=== PATIENT | male | born 1940 | race Caucasian/White ===

== ENCOUNTER → 2017-07-12 11:14 | Outpatient (POV) | payer MEDICARE, OTHER, BC, SELFPAY ==
[2017-07-12 11:28] VITALS: BP 165/96; PULSE 91; RESP 18; O2SAT 97; BMI 25.7
--- NOTE | 2017-07-12 12:05 | HMH.PAINSOAP ---
[facility] Pain Management SOAP Note Subjective:: Patient is a pleasant 77-year-old male who we are following up with for pain secondary to degenerative disc disease of the lumbar spine, lumbar radiculopathy, postlaminectomy syndrome. Patient recently returned from [place] vacation. Patient states he thought that his injection appointment was today. I discussed with the patient the necessity to follow-up in between injections. Patient would like a lumbar epidural steroid injection at L4-L5. He has been getting these regularly with good relief. States that he gets up to 80% relief for several months after these injections. Patient is also been taking [place] 5 mg 1 p.o. 3 times daily. Denies side effects of this pain medication. Patient states that the pain medication relieves his pain up to 75%. Patient describes his pain is achy and constant. He states that he does have right radicular pain in his leg times. 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 Plan:: We will refill his [place] 5 mg 1 p.o. 3 times daily. I discussed with Dr. De Leon this and he agrees. [facility] #[id number] reviewed and appropriate. Will be sent for urine drug screen today. Patient did recently receive cough medicine with hydrocodone in it from his primary care provider. We will also order him a lumbar epidural steroid injection at L4-L5 today given its efficacy in the past. Patient has been prescribed a controlled substance after being counseled on the medication, medication safety, and possible side effects. [facility] report has been obtained and reviewed prior to prescription and found to be appropriate. Opioid contract was reviewed and signed by the patient, and that they have agreed to all of the terms set forth by our compliance program. This note was dictated using voice recognition software and may include errors and omissions.
--- NOTE | 2017-07-12 12:09 | P.CONS_ITS ---
[facility] Pain Management SOAP Note Subjective:: Patient is a pleasant 77-year-old male who we are following up with for pain secondary to degenerative disc disease of the lumbar spine, lumbar radiculopathy , postlaminectomy syndrome. Patient recently returned from [place] vacation. Patient states he thought that his injection appointment was today. I discussed with the patient the necessity to follow-up in between injections. Patient would like a lumbar epidural steroid injection at L4-L5. He has been getting these regularly with good relief. States that he gets up to 80% relief for several months after these injections. Patient is also been taking [place] 5 mg 1 p.o. 3 times daily. Denies side effects of this pain medication. Patient states that the pain medication relieves his pain up to 75%. Patient describes his pain is achy and constant. He states that he does have right radicular pain in his leg times. 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 Plan:: We will refill his [place] 5 mg 1 p.o. 3 times daily. I discussed with Dr. De Leon this and he agrees. [facility] #[id number] reviewed and appropriate. Will be sent for urine drug screen today. Patient did recently receive cough medicine with hydrocodone in it from his primary care provider. We will also order him a lumbar epidural steroid injection at L4-L5 today given its efficacy in the past. Patient has been prescribed a controlled substance after being counseled on the medication, medication safety, and possible side effects. [facility] report has been obtained and reviewed prior to prescription and found to be appropriate. Opioid contract was reviewed and signed by the patient, and that they have agreed to all of the terms set forth by our compliance program. This note was dictated using voice recognition software and may include errors and omissions.
[2017-07-12 14:04] LABS: Amphetamine/Metha Screen,Urine Negative ng/mL (<1000); Barbiturates Screen,Urine Negative ng/mL (<200); Benzodiazepines Screen,Urine Negative ng/mL (200); Cannabinoid Screen,Urine Negative ng/mL (<50); Cocaine Screen,Urine Negative ng/g (<300); Methadone Screen,Urine Negative ng/mL (<300); Opiate Screen,Urine Positive ng/mL (<300); Phencyclidine Screen,Urine Negative ng/mL (<25)
[2017-07-16 12:17] LABS: Codeine Negative (Cutoff=100); Hydrocodone Positive (.); Hydromorphone Positive (.); Morphine Negative (Cutoff=100)
[2017-07-16 17:19] LABS: Opiates Positive (.)
--- NOTE | 2017-09-20 13:34 | PC.PHONENOTE ---
Patient called our office at 1330 to inform us he will be refilling a prescription of [place] 5mg, quantity of 10, that Dr. Barnard from [facility] from having surgery on his face. Patient confirmed understanding of not taking the medication Dr. De Leon has prescribed.
== END ==
PROVIDERS: Family Provider Internal Medicine; PCP Internal Medicine; Visit Provider Clinical Nurse Specialist Family Health
DX: M54.16 Radiculopathy, lumbar region (principal); Z79.899 Other long term (current) drug therapy
CPT/HCPCS: 99212; 80305; 80361; 80365; G0480